=== PATIENT | female | born 2000 | race Two or more races ===

== ENCOUNTER 2023-01-14 17:25 | Emergency (ER) | payer BC, SELFPAY ==
[2023-01-14 18:16] VITALS: BP 121/82; PULSE 96; RESP 16; TEMP 38.3; O2SAT 98; BMI 17.7
--- NOTE | 2023-01-14 18:18 | ED.FEVER ---
HPI - Fever General Chief Complaint: Fever Stated Complaint: fever x3 days, rash Time Seen by Provider: 01/14/23 22:40 Source: patient Mode of arrival: ambulatory Limitations: no limitations History of Present Illness HPI Narrative: Patient was healthy came from [place] noticed to have sore throat low-grade fever rash on the chest and started 3 days patient father was also congested had fever last week Patient has mosquito bite few weeks ago does not have any tick bite Related Data Previous Rx's Medication Instructions Recorded doxycycline hyclate 100 mg tablet 100 mg PO BID #20 tabs 01/14/23 Allergies Allergy/AdvReac Type Severity Reaction Status Date / Time No Known Allergies Allergy Verified 01/14/23 18:16 Review of Systems Review of Systems: Yes all other systems are reviewed and are negative [facility] Social History Social History Advance Directives: No Advance Directives Information Provided: No Physical Exam Vital Signs: Vital Signs: Last Vital Signs Temp 100.9 F H 01/14/23 18:16 Pulse 96 01/14/23 18:16 Resp 16 01/14/23 18:16 BP 121/82 01/14/23 18:16 Pulse Ox 98 01/14/23 18:16 O2 Del Method Room Air 01/14/23 18:16 BMI result Body Mass Index 17.7 Appearance: Alert. Oriented X3. No acute distress. ENT: Pharynx normal. Oral Mucosa moist Neck: Normal inspection. Neck supple. CVS: Normal heart rate and rhythm. Pulses normal. Respiratory: No respiratory distress. Equal air entry bilateral, no wheezing/rales/rhonchi Abdomen: Soft and nontender. Bowel sounds are present, Skin: Skin warm and dry. Maculopapular rash on the trunk Normal skin turgor. Extremities: No lower extremity edema. No calf tenderness Neuro: Oriented X 3. Course Course Course Narrative: This is a rapid medical exam. Deferred additional HPI, ROS, PE to primary provider. 22yo female with past medical history of none, immunizations UTD here with complaints fever (max temp 102), sore throat, diarrhea, rash x 3 days. Will obtain testing for flu/covid/rsv, strep testing. Will give tylenol in triage for fever 100.9 Medications Administered Discontinued Medications Generic Name Dose Route Start Last Admin Trade Name Freq PRN Reason Stop Dose Admin Acetaminophen 975 mg 01/14/23 18:18 01/14/23 18:23 Acetaminophen 325 Mg Tablet PO 01/14/23 18:19 975 mg ONCE ONE Administration Doxycycline Monohydrate 100 mg 01/14/23 23:11 01/14/23 23:16 Doxycycline Monohydrate 100 Mg Capsule PO 01/14/23 23:12 100 mg ONCE ONE Administration Medical Decision Making Admission/Observation Consideration of admission/observation: Escalation of care including admission/observation considered Tick-borne disease/viral fever/COVID/strep Lab Data [facility] Lab Attestation statement: I reviewed the patient's lab results. 01/14/23 20:14 01/14/23 20:14 Labs: Lab Results 01/14/23 01/14/23 Range/Units 18:43 20:14 WBC 2.5 L (4.8-10.8) X10*3/uL RBC 4.18 L (4.20-5.50) X10*6/uL Hgb 13.3 (12.0-16.0) g/dl Hct 37.8 (37.0-47.0) % MCV 90.4 (80.0-98.0) fL MCH 31.8 (27.0-33.0) pg MCHC 35.2 H (31.0-35.0) g/dl RDW 12.0 (11.0-16.0) % Plt Count 108 L (160-400) X10*3/uL MPV 12.0 (9.4-12.3) fL Immature Gran % (Auto) 0.8 H (0.0-0.4) % Neut % (Auto) 64.9 (45-73) % Lymph % (Auto) 25.9 (20-40) % [place] % (Auto) 7.6 (2-11) % Eos % (Auto) 0.4 (0-4) % Baso % (Auto) 0.4 (0-2) % Lymph # (Auto) 0.7 L (1.2-4.9) X10*3/uL [place] # (Auto) 0.2 (0.1-1.2) X10*3/uL Eos # (Auto) 0.0 (0.0-0.4) X10*3/uL Baso # (Auto) 0.0 (0.0-0.2) X10*3/uL Abs Immat Gran (auto) 0.02 (0.00-0.03) X10*3/uL Absolute Neuts (auto) 1.6 L (2.0-8.3) x10*3/uL Absolute Nucleated RBC 0.000 (0.0-0.012) X10*3/uL Nucleated RBC % (auto) 0.0 (0.0-0.2) /100WBC Smear Tech's Comments VERIFIED Sodium 136 (135-145) mmol/L Potassium 3.9 (3.3-5.1) mmol/L Chloride 102 (96-108) mmol/L Carbon Dioxide 27 (22-29) mmol/L Anion Gap 11 L (12-20) BUN 10 (9-16) mg/dL Creatinine 0.73 (0.5-1.4) mg/dL Estim Creat Clear Calc 105.6 Estimated GFR > 60 Random Glucose 97 (60-115) mg/dL Calcium 9.1 (8.4-10.2) mg/dL Monoscreen Negative (Negative) Influenza Type A (PCR) NEGATIVE (Negative) Influenza Type B (PCR) NEGATIVE (Negative) RSV RNA Qual (PCR) NEGATIVE (Negative) SARS-CoV-2 RNA (RT-PCR) NEGATIVE (Negative) S. pyogenes GrpA CORDELL Negative (Negative) Discharge Plan Discharge Clinical Impression: Fever of unknown origin Patient Disposition: Home, Self-Care Instructions: Fever in Adults (ED), Upper Respiratory Infection (DC) Additional Instructions: Take Tylenol/Motrin for fever Antibiotic as prescribed Because of fever not very clear Report to the ER if fever continues/get worse Prescriptions: New doxycycline hyclate 100 mg tablet 100 mg PO BID Qty: 20 0RF Interventions: ED Discharge Assessment Last Done: 01/14/23 23:23 Discharge Date/Time: 01/14/23 23:23
[2023-01-14] MEDS: Acetaminophen 325 MG TABLET 975 MG PO (18:23)
[2023-01-14 18:58] LABS: IDNOW Serial# 08D9AD1C; Strep A Nucleic Acid Negative (Negative)
[2023-01-14 19:32] LABS: Influenza A PCR NEGATIVE (Negative); Influenza B PCR NEGATIVE (Negative); Resp Syncy Virus RNA Qual PCR NEGATIVE (Negative); SARS COV2 PCR INHOUSE NEGATIVE (Negative)
[2023-01-14 20:30] LABS: Basophils Percent Auto 0.4 % (0-2); Eosinophils Percent Auto 0.4 % (0-4); Hematocrit 37.8 % (37.0-47.0); Hemoglobin 13.3 g/dl (12.0-16.0); Imm Gran Abs Auto 0.02 X10*3/uL (0.00-0.03); Imm Gran Pct Auto 0.8 % (0.0-0.4); Lymphocytes Absolute Auto 0.7 X10*3/uL (1.2-4.9); Lymphocytes Percent Auto 25.9 % (20-40); MANUAL DIFF FLAG SCAN; Mean Corpuscular HGB Conc 35.2 g/dl (31.0-35.0); Mean Corpuscular Hemoglobin 31.8 pg (27.0-33.0); Mean Corpuscular Volume 90.4 fL (80.0-98.0); Monocytes Absolute Auto 0.2 X10*3/uL (0.1-1.2); Monocytes Percent Auto 7.6 % (2-11); Neutrophils Absolute Auto 1.6 x10*3/uL (2.0-8.3); Neutrophils Percent Auto 64.9 % (45-73); Platelet Count 108 X10*3/uL (160-400); Red Blood Count 4.18 X10*6/uL (4.20-5.50); SCAN SMEAR FLAG 1
[2023-01-14 20:32] LABS: White Blood Count 2.5 X10*3/uL (4.8-10.8)
[2023-01-14 20:36] LABS: Anion Gap 11 (12-20); Blood Urea Nitrogen 10 mg/dL (9-16); Calcium 9.1 mg/dL (8.4-10.2); Carbon Dioxide 27 mmol/L (22-29); Chloride 102 mmol/L (96-108); Creatinine Clr Calc Pharmacy 105.6; Estimated Glomerular Filt Rate > 60; Glucose Random 97 mg/dL (60-115); Potassium 3.9 mmol/L (3.3-5.1); Sodium 136 mmol/L (135-145)
[2023-01-14 20:43] LABS: Monotest Negative (Negative)
[2023-01-14 21:01] LABS: SLIDE REVIEW VERIFIED
[2023-01-14] MEDS: Doxycycline Monohydrate 100 MG CAPSULE PO (23:16)
== END 2023-01-14 23:23 | disposition home or self-care (01) ==
PROVIDERS: Nurse Practitioner Family; Emergency Provider Internal Medicine
DX: R50.9 Fever, unspecified (principal); Z20.822 Contact with and (suspected) exposure to COVID-19; Z20.828 Contact with and (suspected) exposure to other viral communicable diseases; Z79.899 Other long term (current) drug therapy
CPT/HCPCS: 0241U; 36415; 80048; 85025; 86308; 87651; 99283